=== PATIENT | male | born 1995 | race Two or more races ===

== ENCOUNTER 2017-05-08 12:33 | Emergency (ER) | payer BC ==
[2017-05-08 12:38] VITALS: BP 128/79; PULSE 75; TEMP 98.7; BMI 32.3
--- NOTE | 2017-05-08 13:33 | PDOC ---
History of Present Illness - General Chief Complaint: Ear Problem Stated Complaint: EAR PROBLEM FOR 3 MONTHS Time Seen by Provider: 05/08/17 13:14 History Source: Patient, Parent(s) Exam Limitations: No Limitations - History of Present Illness Initial Comments: 05/08/17 13:49 She came for evaluation of a vascular lesion that is progressively worsened to the top part of his posterior right Pinna. It is had spontaneous bleeding from same site on 2-3 different occasions without any activity changes or manipulation. States is not painful, no fevers, no purulent drainage. Has had no recent trauma or piercings. Denies history of lesions/MRSA lesions anywhere on body. Father reports that appearance and vasculature of his right earlobe has changed over past 3 months that they have noticed this lesion. Timing/Duration: unsure Severity: mild Associated Symptoms: reports: denies symptoms Past History - Travel Traveled outside of the country in the last 30 days: No Close contact w/someone who was outside of country & ill: No - Past Medical History Allergies/Adverse Reactions: Allergies Allergy/AdvReac Type Severity Reaction Status Date / Time No Known Allergies Allergy Verified 05/08/17 12:38 Home Medications: Ambulatory Orders NK [No Known Home Medication] 05/08/17 COPD: No - Suicide/Smoking/Psychosocial Hx Smoking History: Never smoked Information on smoking cessation initiated: No Hx Alcohol Use: No Drug/Substance Use Hx: No Substance Use Type: None Review of Systems - Review of Systems Able to Perform ROS?: Yes Is the patient limited Mongolian proficient: Yes Constitutional: Yes: See HPI. No: Symptoms Reported, Chills, Fever HEENTM: Yes: See HPI, Other (lesion to the top posterior aspect of right earlobe approximately 1 cm and fluctuant, nonpurulent or tender). No: Symptoms Reported, Ear Pain *Physical Exam - Vital Signs Last Vital Signs Temp Pulse Resp BP Pulse Ox 98.7 F 75 17 128/79 99 05/08/17 12:36 05/08/17 12:36 05/08/17 12:36 05/08/17 12:36 05/08/17 12:36 - Physical Exam General Appearance: Yes: Nourished, Appropriately Dressed HEENT: positive: JOSE, TMs Normal, Other (lesion to the top posterior aspect of right earlobe approximately 1 cm and fluctuant, nonpurulent or tender) Neck: positive: Supple Respiratory/Chest: positive: Lungs Clear Integumentary: positive: Normal Color, Other Neurologic: positive: poultry cleaner II-XII NML intact, Fully Oriented, Alert, Normal Mood/ Affect, Normal Response, Motor Strength 5/5 *DC/Admit/Observation/Transfer Diagnosis at time of Disposition: Cyst - Discharge Dispostion Disposition: HOME Condition at time of disposition: Stable Admit: No - Referrals Referrals: Bud Frederikc MD [Staff Physician] - - Patient Instructions Additional Instructions: Rest, avoid manipulation of tissue to avoid any further inflammation If bleeding reoccurs use paper towel or napkin and hold pressure for approximately 10 minutes, may also use ice or cool packs If bleeding does not resolve come to emergency department Have evaluation and hopeful excision with studies to rule out any other significant illness - Post Discharge Activity Forms/Work/School Notes: Back to Work
== END 2017-05-08 14:02 | disposition home or self-care (01) ==
LOC: JERFT 12:33
DX: Q18.1 Preauricular sinus and cyst (principal)
CPT/HCPCS: 99281-25